=== PATIENT | female | born 1950 | race Caucasian/White ===

== ENCOUNTER → 2016-10-17 | Outpatient (CLI) | payer OTHER, MEDICARE | LOC: BRMIMAGING 12:22 | PROVIDERS: ATTEND Family Medicine | DX: M17.0 Bilateral primary osteoarthritis of knee (principal); M23.41 Loose body in knee, right knee | CPT/HCPCS: 73560-PO ==

== ENCOUNTER → 2018-09-25 | Outpatient (CLI) | payer OTHER, MEDICARE | LOC: BRMIMAGING 11:46 | PROVIDERS: ATTEND Family Medicine | DX: M54.5 Low back pain (principal); M25.562 Pain in left knee; M17.12 Unilateral primary osteoarthritis, left knee | CPT/HCPCS: 72100-PO; 73560-PO ==